=== PATIENT | male | born 1965 | race Caucasian/White ===

== ENCOUNTER 2017-02-19 18:46 | Inpatient (IN) | payer OTHER ==
[~2017-02-19] VITALS: Ht 190.5 cm; Wt 113.9 kg
[~2017-02-19 18:46] MED LIST: ENOX100D SQ; INSU100V7 SQ; METF10002 PO; ZOLP10TA2 PO
--- NOTE | 2017-02-19 19:05 | NUR ---
PT PRESENTED TO THE ER WITH A C/O LEFT SIDED CP. 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 PT STATED THAT THE PAIN IS 7/10. PT AMBULATED TO BED #1 WITHA STEADY GAIT. VSS.
[2017-02-19] MEDS ORDERED: ONDANSETRON HCL/PF 4 MG/2 ML VIAL ONE (19:28)
[2017-02-19] MEDS ORDERED: MORPHINE SULFATE INJ 4 MG/ML DISP.SYRIN ONE ×2 (19:28→20:12)
[2017-02-19] MEDS ORDERED: MORPHINE SULFATE INJ 2 MG/ML DISP.SYRIN IV ONE ×2 (19:30→20:30)
[2017-02-19] MEDS ORDERED: ONDANSETRON HCL/PF 4 MG/2 ML VIAL IVP ONE (19:30)
[2017-02-19 19:39] LABS: BASOPHILS % (AUTO) 0.4 % (0.0-2.0); EOSINOPHILS # (AUTO) 0.1 /CMM (0.0-0.7); EOSINOPHILS % (AUTO) 2.3 % (0.0-6.0); HEMATOCRIT 39 % (39-51); HEMOGLOBIN 13.2 g/dL (13.5-17.5); LYMPHOCYTES # (AUTO) 1.7 /CMM (0.8-4.8); LYMPHOCYTES % (AUTO) 31.2 % (20.0-44.0); MEAN CORPUSCULAR HEMOGLOBIN 28 PG (26.0-33.0); MEAN CORPUSCULAR HGB CONC 34 g/dl (31.0-36.0); MEAN CORPUSCULAR VOLUME 84 fL (80-96); MONOCYTES # (AUTO) 0.4 /CMM (0.1-1.30); MONOCYTES % (AUTO) 6.9 % (2.0-12.0); NEUTROPHILS # (AUTO) 3.1 /CMM (1.8-8.9); NEUTROPHILS % (AUTO) 59.2 % (43.0-81.0); PLATELET COUNT (AUTO) 158 /CMM (150-450); RDW COEFFICIENT OF VARIATION 13.4 (11.5-15.0); RED BLOOD CELL COUNT(AUTO) 4.64 MIL/uL (4.5-6.0); WHITE BLOOD COUNT (AUTO) 5.3 K/uL (4.3-11.0)
[2017-02-19 19:41] LABS: CALCIUM, SERUM 8.7 mg/dL (8.5-10.1); CARBON DIOXIDE 32 mmol/L (21-32); CHLORIDE 104 mmol/L (98-107); CREATININE 1.4 mg/dL (0.6-1.3); GFR 53 mL/min (>60); GLUCOSE 254 mg/dL (74-106); POTASSIUM 3.9 mmol/L (3.5-5.1); SODIUM SERUM 138 mmol/L (136-145); UREA NITROGEN, BLOOD 25 mg/dL (7-18)
[2017-02-19 19:45] LABS: INR 1.01 (0.87-1.13); PROTHROMBIN TIME 10.5 SECS (9.5-12.7)
--- NOTE | 2017-02-19 19:47 | NUR ---
CXR IN PROGRESS AT THE BEDSIDE
[2017-02-19 19:49] LABS: TROPONIN I < 0.017 ng/mL (0.00-0.056)
--- NOTE | 2017-02-19 20:12 | NUR ---
CXR IN PROGRESS AT THE BEDSIDE.
[2017-02-19] MEDS ORDERED: IOHEXOL-350 100 ML VIAL IV ONE (20:15)
[2017-02-19] MEDS ORDERED: CT SWABBABLE VALVE TRANS SET 1 EA INFUS.SET MC ONE (20:15)
[2017-02-19] MEDS ORDERED: IV NS 0.9% 250 ML IV ONE (20:15)
--- NOTE | 2017-02-19 20:16 | NUR ---
PT C/O CP AND BILATERAL LEG PAIN 06/06. DR. STOCK IS AWARE. NEW ORDERS GIVEN AND CARRIED OUT.
--- NOTE | 2017-02-19 20:20 | NUR ---
PT LEFT FOR CT VIA WC.
--- NOTE | 2017-02-19 20:33 | NUR ---
PT RETURNED FROM CT VIA WC.
--- NOTE | 2017-02-19 20:43 | NUR ---
VENOUS DUPLEX TECH AT THE BEDSIDE.
--- NOTE | 2017-02-19 21:05 | NUR ---
VENOUS DUPLEX IS FINISHED. PT IS +DVT.
--- NOTE | 2017-02-19 21:10 | NUR ---
PT'S O2 SAT IS 90-91% ON RA. PT PLACED ON 2L O2 VIA NC. PT'S O2 SAT IS NOW 95%
[2017-02-19] MEDS ORDERED: IV SET PRIMARY 1 EA INFUS.SET MC ONE (21:19)
[2017-02-19] MEDS ORDERED: IV NS 0.9% 1,000 ML ONE (21:19)
--- NOTE | 2017-02-19 21:26 | NUR ---
PT REC'D 1L NS VIA 18G IV RAC PER .
--- NOTE | 2017-02-19 21:29 | NUR ---
DR. STOCK IS AT THE BEDSIDE SPEAKING TO THE PT.
--- NOTE | 2017-02-19 21:33 | NUR ---
ASTRID MONACO, EDUIN [facility] LPN
--- NOTE | 2017-02-19 21:34 | NUR ---
CALLED NURSING SUP. FOR TELE BED
[2017-02-19] MEDS ORDERED: MULT-70 PO (21:41)
[2017-02-19] MEDS ORDERED: APIX5TAB PO (21:41)
[2017-02-19] MEDS ORDERED: ATOR40TA PO (21:41)
[2017-02-19] MEDS ORDERED: SIMV40TA5 PO (21:41)
[2017-02-19] MEDS ORDERED: INSU100V28 SQ (21:42)
[2017-02-19] MEDS ORDERED: HEPARIN INFUSION/D5W 500 ML IV ONE (21:57)
[2017-02-19] MEDS ORDERED: IV SET PRIMARY PUMP SET 1 EA INFUS.SET MC ONE (21:57)
[2017-02-19] MEDS ORDERED: HEPARIN INFUSION/D5W 500 ML IV PRN (22:00)
[2017-02-19] MEDS ORDERED: IV NS 0.9% 1,000 ML BAG IV ONE (22:00)
--- NOTE | 2017-02-19 22:06 | NUR ---
HEPARIN DRIP STARTED BY AZIZA KANG. 1800U/HR ; 36ML/HR. SECOND VERIFICATION BY MYSELF.
--- NOTE | 2017-02-19 22:09 | NUR ---
CALLING REPORT TO TELE NURSE.
--- NOTE | 2017-02-19 22:14 | NUR ---
ON HOLD FOR REPORT.
--- NOTE | 2017-02-19 22:15 | NUR ---
CALLING REPORT TO AZIZA HEALY
[2017-02-19] MEDS ORDERED: Z GUARD REMEDY 2 OZ OINT TP PRN (22:30)
[2017-02-19] MEDS ORDERED: ONDANSETRON HCL/PF 4 MG/2 ML VIAL IVP PRN (22:30)
[2017-02-19] MEDS ORDERED: ACETAMINOPHEN 325 MG TABLET PO PRN (22:30)
[2017-02-19] MEDS ORDERED: MAGNESIUM HYDROXIDE 30 ML UDC PO PRN (22:30)
[2017-02-19] MEDS ORDERED: ZOLPIDEM TARTRATE 5 MG TABLET PO PRN (22:30)
[2017-02-19] MEDS ORDERED: HYDROCODONE/APAP 5/325MG 1 EACH TABLET PO PRN (22:30)
[2017-02-19 22:31] VITALS: BP 114/68
--- NOTE | 2017-02-19 22:35 | NUR ---
RN ADMITTING NOTES RECEIVED REPORT FROM SUPERVISOR POULTRY [employer]CRYSTAL. Pt ARRIVED TO FLOOR VIA GURNEY. Pt IS A/OX4, VERBAL ABLE TO MAKE NEEDS KNOWN. NO S/S OF ACUTE DISTRESS OR SOB NOTED. IV ACCESS ON RAC #18G. SAFETY MEASURES IN PLACE. BED LOW, LOCKED, HOB ELEVATED, SIDE RAILS UP, CALL LIGHT ANG BEDSIDE TABLE WITHIN REACH. WILL CONTINUE TO MONITOR Pt THROUGHOUT THE REST OF THE SHIFT.
[2017-02-19] MEDS ORDERED: HYDROMORPHONE 1 MG/1 ML DISP.SYRIN ONE (23:53)
[2017-02-19] MEDS: HYDROMORPHONE 1 MG/1 ML DISP.SYRIN IV PRN (23:59)
[2017-02-20 04:00] VITALS: BP 136/72
[2017-02-20] MEDS ORDERED: HYDROMORPHONE 1 MG/1 ML DISP.SYRIN ONE (04:12)
[2017-02-20] MEDS: HYDROMORPHONE 1 MG/1 ML DISP.SYRIN IV PRN ×3 (04:17→12:27)
[2017-02-20] MEDS ORDERED: HYDROCODONE/APAP 5/325MG 1 EACH TABLET ONE (05:35)
[2017-02-20] MEDS: INSULIN REGULAR, HUMAN 100 UNIT/ML 3 ML VIAL SQ SCH ×2 (06:40→12:06)
--- NOTE | 2017-02-20 06:40 | NUR ---
RN NOTES BG 172. ADMINISTERED 5UN OF INSULIN PER MD ORDER.
--- NOTE | 2017-02-20 06:55 | NUR ---
RN CLOSING NOTES NO SIGNIFICANT CHANGES DURING THE NIGHT. NO S/S OF ACUTE DISTRESS OR SOB NOTED. ALL NEEDS MET AND ATTENDED TO. HEPARIN DRIP INFUSING WELL @1800 UN/HR, RATE @36ML/HR. SAFETY MEASURES IN PLACE. WILL ENDORSE TO DAYSHIFT RN FOR Pt's EBEN.
[2017-02-20 07:01] LABS: BASOPHILS % (AUTO) 0.5 % (0.0-2.0); EOSINOPHILS # (AUTO) 0.1 /CMM (0.0-0.7); EOSINOPHILS % (AUTO) 2.7 % (0.0-6.0); HEMATOCRIT 35 % (39-51); HEMOGLOBIN 11.7 g/dL (13.5-17.5); LYMPHOCYTES % (AUTO) 42.4 % (20.0-44.0); MEAN CORPUSCULAR HEMOGLOBIN 28 PG (26.0-33.0); MEAN CORPUSCULAR HGB CONC 34 g/dl (31.0-36.0); MEAN CORPUSCULAR VOLUME 84 fL (80-96); MONOCYTES # (AUTO) 0.4 /CMM (0.1-1.30); MONOCYTES % (AUTO) 8.4 % (2.0-12.0); NEUTROPHILS # (AUTO) 2.2 /CMM (1.8-8.9); PLATELET COUNT (AUTO) 143 /CMM (150-450); RDW COEFFICIENT OF VARIATION 14.6 (11.5-15.0); RED BLOOD CELL COUNT(AUTO) 4.13 MIL/uL (4.5-6.0); WHITE BLOOD COUNT (AUTO) 4.7 K/uL (4.3-11.0)
--- NOTE | 2017-02-20 07:16 | NUR ---
TRANSPORTATION WORKER INITIAL NOTES PATIENT IN BED, AWAKE, A/O X4. ON OXYGEN AT 2L/MIN VIA NC, NO SOB NOTED. IV IN RIGHT AC G18 PATENT AND INTACT, PATIENT IS ON HEPARIN DRIP INFUSING AT 36ML/HR (1800U/HR), PATIENT TOLERATING WELL. NO S/S OF BLEEDING. NO C/O PAIN AT THIS TIME. CALL LIGHT WITHIN REACH. WILL CONT TO MONITOR.
[2017-02-20] MEDS ORDERED: PANTOPRAZOLE 40 MG TABLET.DR PO SCH (07:30)
[2017-02-20 08:00] VITALS: BP 118/65
[2017-02-20] MEDS ORDERED: METFORMIN 500 MG TABLET PO SCH (09:00)
[2017-02-20] MEDS ORDERED: MULTIVITAMINS,THERAPEUTIC 1 UDTAB TABLET PO SCH (09:00)
[2017-02-20] MEDS ORDERED: SIMVASTATIN 40 MG TABLET PO SCH (09:00)
[2017-02-20] MEDS ORDERED: ATORVASTATIN 40 MG TABLET PO SCH (09:00)
[2017-02-20 09:07] LABS: CALCIUM, SERUM 8.3 mg/dL (8.5-10.1); MAGNESIUM 1.4 mg/dL (1.8-2.4); PHOSPHORUS 4.1 mg/dL (2.5-4.9); POTASSIUM 4.4 mmol/L (3.5-5.1)
--- NOTE | 2017-02-20 09:45 | NUR ---
APTT 55 SECONDS, NO CHANGE. CONTINUE HEPARIN DRIP AT 1800 U/HR = 36ML/HR. PTT ON 02/21/17 AT 0600 ORDERED PER HOSP HEPARIN PROTOCOL. PHARMACY INFORMED.
[2017-02-20] MEDS ORDERED: WARF4TAB41 PO (09:51)
[2017-02-20] MEDS ORDERED: ENOX120D SQ (09:51)
[2017-02-20] MEDS ORDERED: WARFARIN SODIUM 5 MG TABLET PO SCH (10:00)
[2017-02-20] MEDS ORDERED: HEPARIN INFUSION/D5W 500 ML IV PRN (10:00)
--- NOTE | 2017-02-20 10:00 | NUR ---
PATIENT IS SEEN BY DR. BAEZ TODAY, PATIENT TO BE DISCHARGED TO HOME ORDERED. HOME TAVIA DAILY PER DR. BAEZ. PATIENT IS AWARE.
--- NOTE | 2017-02-20 10:22 | NUR ---
DR. BAEZ ORDERED COUMADIN PO TO START TODAY. PT/INR RESULT WAS YESTERDAY, NO CURRENT PT/INR LEVEL OF TODAY 02/20/17. INFORMED, PER MD ITS OK TO GIVE DOSE OF COUMADIN TODAY.
--- NOTE | 2017-02-20 12:09 | NUR ---
INSULIN REGULAR 5 UNITS SC GIVEN AC MEALS ORDERED.
--- NOTE | 2017-02-20 13:23 | NUR ---
PER PATIENT HE RECEIVED PNA VACCINE LAST YEAR 2015. UPDATED VACCINATIONS STATUS.
--- NOTE | 2017-02-20 15:00 | NUR ---
MS RN DISCHARGED PATIENT HAS BEEN CLEARED FOR DISCHARGE HOME BY MD. PATIENT IS AMBULATORY, V/S REMAINS STABLE. NO C/O PAIN OR ANY DISCOMFORT, NO EPISODE OF CHEST PAIN. DISCHARGE INSTRUCTION GIVEN TO THE PATIENT, VERBALIZED UNDERSTANDING. SKIN INTACT. PATIENT LEFT HOSP IN STABLE CONDITION VIA PRIVATE CAR.
[2017-02-20] MEDS ORDERED: INSULIN DETEMIR 100 UNIT/ML CARTRIDGE SQ SCH (22:00)
== END 2017-02-20 14:00 | disposition home or self-care (01) | DRG 197 ==
LOC: ER 18:47 → TELE 22:09 → MED 02-20 10:37
PROVIDERS: ADMIT Nurse Practitioner Acute Care; ATTEND Nurse Practitioner Acute Care
DX: I82.411 Acute embolism and thrombosis of right femoral vein (principal); N17.0 Acute kidney failure with tubular necrosis; I82.433 Acute embolism and thrombosis of popliteal vein, bilateral; D68.59 Other primary thrombophilia; E83.42 Hypomagnesemia; E11.22 Type 2 diabetes mellitus with diabetic chronic kidney disease; E66.01 Morbid (severe) obesity due to excess calories; I25.2 Old myocardial infarction; Z79.01 Long term (current) use of anticoagulants; Z79.84 Long term (current) use of oral hypoglycemic drugs; Z85.850 Personal history of malignant neoplasm of thyroid; Z86.711 Personal history of pulmonary embolism; Z86.718 Personal history of other venous thrombosis and embolism; Z86.73 Personal history of transient ischemic attack (TIA), and cerebral infarction without residual deficits; I25.10 Atherosclerotic heart disease of native coronary artery without angina pectoris; I12.9 Hypertensive chronic kidney disease with stage 1 through stage 4 chronic kidney disease, or unspecified chronic kidney disease; N18.9 Chronic kidney disease, unspecified; Z68.31 Body mass index [BMI] 31.0-31.9, adult; R07.89 Other chest pain; D64.9 Anemia, unspecified; E78.5 Hyperlipidemia, unspecified
CPT/HCPCS: 36415; 71010-TC; 80048-TC; 80061-TC; 82962-TC; 83735-TC; 84100-TC; 84484-TC; 85025-TC; 85730-TC; 93970-TC; A4606; J1170; J1644; J1815; J2270; J2405; J7030; J7050; Q9967; Z7610

== ENCOUNTER → 2023-11-28 | Emergency (ER) | payer MEDICARE, OTHER ==
[~2023-11-28] VITALS: Ht 190.5 cm; Wt 122.5 kg
[~2023-11-28] MED LIST changes: +ATOR40TA PO; +ENOX120D SQ; +HYDROMORPHONE 1 MG/1 ML DISP.SYRIN IV ONE; +HYDROMORPHONE 1 MG/1 ML DISP.SYRIN ONE; +INSU100V28 SQ; +IOHEXOL-350 100 ML VIAL IV ONE; +IV NS 0.9% 250 ML IV ONE; +METF-442 PO; -METF10002 PO; +MORPHINE SULFATE INJ 2 MG/ML DISP.SYRIN IV ONE; +MORPHINE SULFATE INJ 4 MG/ML DISP.SYRIN ONE; +MULT-594 PO; +SIMV-49 PO; +WARF4TAB41 PO
[2023-11-28 08:28] VITALS: BP 141/78; TEMP 98.7; O2SAT 100
[2023-11-28 10:34] LABS: BASOPHILS % (AUTO) 0.6 % (0.0-2.0); EOSINOPHILS # (AUTO) 0.1 K/uL (0.0-0.7); EOSINOPHILS % (AUTO) 1.6 % (0.0-6.0); HEMATOCRIT 39 % (39-51); HEMOGLOBIN 12.7 g/dL (13.5-17.5); LYMPHOCYTES # (AUTO) 1.4 K/uL (0.8-4.8); LYMPHOCYTES % (AUTO) 20.3 % (20.0-44.0); MEAN CORPUSCULAR HEMOGLOBIN 26 PG (26.0-33.0); MEAN CORPUSCULAR HGB CONC 33 g/dl (31.0-36.0); MEAN CORPUSCULAR VOLUME 81 fL (80-96); MONOCYTES # (AUTO) 0.3 K/uL (0.1-1.30); MONOCYTES % (AUTO) 4.6 % (2.0-12.0); NEUTROPHILS % (AUTO) 72.9 % (43.0-81.0); PLATELET COUNT (AUTO) 207 K/uL (150-450); RED BLOOD CELL COUNT(AUTO) 4.83 MIL/uL (4.5-6.0); RED CELL DISTRIBUTION WIDTH 16.8 % (11.5-15.0); WHITE BLOOD COUNT (AUTO) 6.8 K/uL (4.3-11.0)
[2023-11-28 10:37] LABS: CALCIUM, SERUM 9.5 mg/dL (8.5-10.1); CARBON DIOXIDE 26 mmol/L (21-32); CHLORIDE 102 mmol/L (98-107); CREATININE 1.1 mg/dL (0.6-1.3); GLUCOSE 271 mg/dL (74-106); NT-PRO BNP 328 pg/mL (0-125); SODIUM SERUM 140 mmol/L (136-145); UREA NITROGEN, BLOOD 23 mg/dL (7-18)
== END | disposition home or self-care (01) ==
LOC: ER 08:11
DX: I82.593 Chronic embolism and thrombosis of other specified deep vein of lower extremity, bilateral (principal); I48.91 Unspecified atrial fibrillation; I10 Essential (primary) hypertension; I25.2 Old myocardial infarction; E11.9 Type 2 diabetes mellitus without complications; Z88.8 Allergy status to other drugs, medicaments and biological substances; Z91.018 Allergy to other foods; Z79.4 Long term (current) use of insulin; Z79.84 Long term (current) use of oral hypoglycemic drugs; Z79.899 Other long term (current) drug therapy
CPT/HCPCS: 99285; 93970; 96374; 71275; 71045; 96375; 93005; 85025; 80048; 85378; 36415; 84484 ×2; 83880; J2270; J7050; Q9967; J1170